=== PATIENT | male | born 1955 | race Caucasian/White ===

== ENCOUNTER → 2017-04-07 | Outpatient (CLI) | payer MEDICAID ==
[~2017-04-07] MED LIST: ASPI-496 PO; ATOR-2 PO; CARV12.543 PO; CITA10TA8 PO; CLOP75TA52 PO; IBUP200T48 PO; LORA0.5T PO; MIRT30TA4 PO; NITR0.4T SL; TICA90TA PO
== END | disposition home or self-care (01) ==
LOC: CFH 08:05
PROVIDERS: ATTEND Internal Medicine Cardiovascular Disease
DX: I25.10 Atherosclerotic heart disease of native coronary artery without angina pectoris (principal); I10 Essential (primary) hypertension; Z95.5 Presence of coronary angioplasty implant and graft
CPT/HCPCS: 78452; 93017; A9502

== ENCOUNTER → 2018-02-01 | Outpatient (CLI) | payer MEDICARE, MEDICAID ==
[~2018-02-01] MED LIST changes: -IBUP200T48 PO; +IBUP200T49 PO
== END | disposition home or self-care (01) ==
LOC: CVU 15:11
PROVIDERS: ATTEND Internal Medicine Cardiovascular Disease
DX: I65.23 Occlusion and stenosis of bilateral carotid arteries (principal); I10 Essential (primary) hypertension; E11.9 Type 2 diabetes mellitus without complications; E78.2 Mixed hyperlipidemia; Z82.3 Family history of stroke
CPT/HCPCS: 93880

== ENCOUNTER → 2018-05-13 | Outpatient (CLI) | payer MEDICARE, MEDICAID | END | disposition home or self-care (01) | LOC: RAD 13:56 | PROVIDERS: ATTEND Nurse Practitioner Family | DX: R31.9 Hematuria, unspecified (principal); R10.9 Unspecified abdominal pain | CPT/HCPCS: 74176 ==

== ENCOUNTER 2018-09-04 12:15 | Emergency (ER) | payer MEDICARE, MEDICAID ==
[~2018-09-04] VITALS: Ht 177.8 cm; Wt 92.6 kg
[2018-09-04 12:22] VITALS: BP 103/76
[2018-09-04 13:00] LABS: BASOPHILS # (AUTO) 0.02 x10^3/uL (0-0.1); BASOPHILS % (AUTO) 0 % (0-1); EOSINOPHILS # (AUTO) 0.05 x10^3/uL (0-0.4); EOSINOPHILS % (AUTO) 1 % (1-7); LYMPHOCYTES # (AUTO) 1.46 x10^3/uL (1-3.4); LYMPHOCYTES % (AUTO) 22 % (22-44); MD NO; MEAN CORPUSCULAR HEMOGLOBIN 35.4 pg (27.5-34.5); MEAN CORPUSCULAR HGB CONC 34.3 g/dL (33.2-36.2); MEAN CORPUSCULAR VOLUME 103.4 fL (81-97); MONOCYTES # (AUTO) 0.58 x10^3/uL (0.2-0.8); MONOCYTES % (AUTO) 9 % (2-9); NEUTROPHILS # (AUTO) 4.62 x10^3/uL (1.8-6.8); NEUTROPHILS % (AUTO) 69 % (42-75); PLATELET COUNT 142 x10^3/uL (130-400); RED BLOOD COUNT 4.94 x10^6/uL (4.38-5.82); RED CELL DISTRIBUTION WIDTH 13.6 % (9.4-14.8)
[2018-09-04 13:08] LABS: ALBUMIN 3.5 g/dL (3.4-5.0); ANION GAP 10 mmol/L (5-15); CALCIUM 9.1 mg/dL (8.5-10.1); CHLORIDE 109 mmol/L (98-107); CREATININE 0.93 mg/dL (0.7-1.3)
[2018-09-04 13:12] LABS: TROPONIN I < 0.015 ng/mL (0.000-0.045)
== END 2018-09-04 15:16 | disposition home or self-care (01) ==
LOC: ED 13:25
DX: R07.2 Precordial pain (principal); I10 Essential (primary) hypertension; I25.2 Old myocardial infarction; I51.9 Heart disease, unspecified; I25.10 Atherosclerotic heart disease of native coronary artery without angina pectoris
CPT/HCPCS: 36415; 71046; 80048; 82040; 84484; 85025; 93005; 99284

== ENCOUNTER 2018-09-05 10:22 | Inpatient (IN) | payer MEDICARE, MEDICAID ==
[~2018-09-05] VITALS: Ht 177.8 cm; Wt 92.4 kg
[2018-09-05] MEDS ORDERED: LORazepam 2 MG/ML, 1ML ONE (10:50)
[2018-09-05] MEDS ORDERED: ASPIRIN 81 MG TABLET CHEW ONE (10:50)
[2018-09-05] MEDS ORDERED: ASPIRIN 81 MG TABLET CHEW PO ONE (11:00)
[2018-09-05] MEDS ORDERED: LORazepam 1MG TABLET PO ONE (11:00)
[2018-09-05] MEDS ORDERED: SODIUM CHLORIDE FLUSH 10ML SYR IVF ONE (11:00)
--- NOTE | 2018-09-05 11:10 | NUR ---
REPORT TO GOPAL CASTILLO
[2018-09-05 11:20] LABS: BASOPHILS # (AUTO) 0.02 x10^3/uL (0-0.1); BASOPHILS % (AUTO) 0 % (0-1); EOSINOPHILS # (AUTO) 0.06 x10^3/uL (0-0.4); EOSINOPHILS % (AUTO) 1 % (1-7); LYMPHOCYTES # (AUTO) 1.66 x10^3/uL (1-3.4); LYMPHOCYTES % (AUTO) 31 % (22-44); MD NO; MEAN CORPUSCULAR HEMOGLOBIN 34.8 pg (27.5-34.5); MEAN CORPUSCULAR HGB CONC 33.3 g/dL (33.2-36.2); MEAN CORPUSCULAR VOLUME 104.3 fL (81-97); MEAN PLATELET VOLUME 10.1 fL (7.4-10.4); MONOCYTES # (AUTO) 0.69 x10^3/uL (0.2-0.8); MONOCYTES % (AUTO) 13 % (2-9); NEUTROPHILS # (AUTO) 2.97 x10^3/uL (1.8-6.8); NEUTROPHILS % (AUTO) 55 % (42-75); PLATELET COUNT 130 x10^3/uL (130-400); RED BLOOD COUNT 5.02 x10^6/uL (4.38-5.82); RED CELL DISTRIBUTION WIDTH 13.7 % (9.4-14.8)
[2018-09-05 11:25] LABS: ALBUMIN 3.4 g/dL (3.4-5.0); ANION GAP 7 mmol/L (5-15); CALCIUM 8.9 mg/dL (8.5-10.1); CHLORIDE 109 mmol/L (98-107); CREATININE 0.97 mg/dL (0.7-1.3)
[2018-09-05 11:29] LABS: TROPONIN I < 0.015 ng/mL (0.000-0.045)
[2018-09-05] MEDS ORDERED: LORazepam 2 MG/ML, 1ML IVPush ONE (11:30)
--- NOTE | 2018-09-05 12:01 | NUR ---
RESTING QUIETLY ON [employer]UR[employer]legorithmic, USING IPAD. CARDIAC & VS MONITIORING CONTINUING. PT REPORTS CP AT 1/10, INTERMITTENT PULSING. DENIES LIGHTHEADEDNESS, DIZZINESS. RESP EVEN & UNLABORED, SPEECH CLEAR, SKIN WNL. SIDE RAILS UP X2, CALL LIGHT W/IN REACH.
--- NOTE | 2018-09-05 13:09 | NUR ---
RESTING QUIETLY; AWARE OF PENDING ADMIT; MONITORING CONTINUES
--- NOTE | 2018-09-05 13:25 | NUR ---
PT REPORT TO ANNA NO FOR ROOM 510-2
--- NOTE | 2018-09-05 13:28 | NUR ---
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
[2018-09-05] MEDS ORDERED: ONDANSETRON 2MG/ML, 2ML IVPush PRN (14:00)
[2018-09-05] MEDS ORDERED: LABETALOL 20 MG/4 ML IVPush PRN (14:00)
[2018-09-05] MEDS ORDERED: NITROGLYCERIN 0.4 MG BOTTLE (25 TABS) SL PRN ×2 (14:00)
[2018-09-05] MEDS ORDERED: ACETAMINOPHEN 325 MG TABLET PO PRN (14:00)
[2018-09-05] MEDS ORDERED: morphine SULFATE 10 MG/ML, 1ML IVPush PRN (14:00)
[2018-09-05 14:19] VITALS: BP 137/87
[2018-09-05] MEDS ORDERED: HEPARIN 25,000 UNITS/500ML PMX 500 ML IV PRN (14:30)
[2018-09-05] MEDS ORDERED: HEPARIN 5,000 UNITS/ML, 1ML IV ONE (14:30)
[2018-09-05] MEDS ORDERED: HEPARIN 5,000 UNITS/ML, 1ML IV PRN (14:30)
[2018-09-05] MEDS: SODIUM CHLORIDE 0.9% 1,000 ML IV SCH (15:09)
[2018-09-05 15:24] LABS: INTERNATIONAL NORMALIZED RATIO 1.01 (0.93-1.1); PROTHROMBIN TIME 10.7 Seconds (9.6-11.5)
[2018-09-05 15:31] LABS: TROPONIN I < 0.015 ng/mL (0.000-0.045)
[2018-09-05] MEDS ORDERED: TRAZODONE 50MG TABLET PO PRN (17:30)
[2018-09-05 20:21] VITALS: BP 108/72
[2018-09-05] MEDS: CARVEDILOL 12.5 MG TABLET PO SCH (21:00)
[2018-09-05] MEDS ORDERED: ATORVASTATIN 80 MG TABLET PO SCH (21:00)
[2018-09-05 21:05] LABS: TROPONIN I < 0.015 ng/mL (0.000-0.045)
[2018-09-06] MEDS: SODIUM CHLORIDE 0.9% 1,000 ML IV SCH ×2 (00:44→11:00)
[2018-09-06 02:12] VITALS: BP 142/93
[2018-09-06] MEDS ORDERED: ASPIRIN 81 MG TABLET EC PO SCH (06:00)
[2018-09-06 06:17] LABS: CALCIUM 8.4 mg/dL (8.5-10.1); CHLORIDE 112 mmol/L (98-107)
[2018-09-06 06:28] LABS: BASOPHILS # (AUTO) 0.04 x10^3/uL (0-0.1); BASOPHILS % (AUTO) 1 % (0-1); EOSINOPHILS # (AUTO) 0.09 x10^3/uL (0-0.4); EOSINOPHILS % (AUTO) 1 % (1-7); LYMPHOCYTES # (AUTO) 1.69 x10^3/uL (1-3.4); LYMPHOCYTES % (AUTO) 23 % (22-44); MD NO; MEAN CORPUSCULAR HEMOGLOBIN 35.6 pg (27.5-34.5); MEAN CORPUSCULAR HGB CONC 34.4 g/dL (33.2-36.2); MEAN CORPUSCULAR VOLUME 103.7 fL (81-97); MEAN PLATELET VOLUME 10.5 fL (7.4-10.4); MONOCYTES # (AUTO) 0.84 x10^3/uL (0.2-0.8); MONOCYTES % (AUTO) 11 % (2-9); NEUTROPHILS # (AUTO) 4.81 x10^3/uL (1.8-6.8); NEUTROPHILS % (AUTO) 64 % (42-75); PLATELET COUNT 119 x10^3/uL (130-400); RED BLOOD COUNT 4.64 x10^6/uL (4.38-5.82); RED CELL DISTRIBUTION WIDTH 13.6 % (9.4-14.8)
[2018-09-06 06:31] LABS: ALANINE AMINOTRANSFERASE 36 U/L (12-78); ALKALINE PHOSPHATASE 95 U/L (45-117); ANION GAP 6 mmol/L (5-15); CREATININE 0.86 mg/dL (0.7-1.3); THYROID STIMULATING HORMONE 0.951 mIU/L (0.358-3.740); TOTAL PROTEIN 6.3 g/dL (6.4-8.2)
[2018-09-06 07:08] VITALS: BP 146/92
[2018-09-06] MEDS ORDERED: CITALOPRAM 10 MG TABLET PO SCH (09:00)
[2018-09-06] MEDS ORDERED: CLOPIDOGREL 75 MG TABLET PO SCH (09:00)
[2018-09-06] MEDS: CARVEDILOL 12.5 MG TABLET PO SCH (09:00)
[2018-09-06] MEDS ORDERED: REGADENOSON 0.4 MG/5 ML SYRINGE ONE (09:41)
[2018-09-06 13:26] VITALS: BP 126/73
== END 2018-09-06 15:06 | disposition left against medical advice (07) | DRG 311 ==
LOC: ED 11:36 → EDIP 12:30 → 5SO 13:53
PROVIDERS: ADMIT Hospitalist; ATTEND Hospitalist
DX: I24.9 Acute ischemic heart disease, unspecified (principal); I25.10 Atherosclerotic heart disease of native coronary artery without angina pectoris; I10 Essential (primary) hypertension; E78.5 Hyperlipidemia, unspecified; D75.89 Other specified diseases of blood and blood-forming organs; E78.00 Pure hypercholesterolemia, unspecified; F17.210 Nicotine dependence, cigarettes, uncomplicated; I25.2 Old myocardial infarction; Z79.02 Long term (current) use of antithrombotics/antiplatelets; Z82.49 Family history of ischemic heart disease and other diseases of the circulatory system; Z86.79 Personal history of other diseases of the circulatory system; Z95.5 Presence of coronary angioplasty implant and graft; Z79.82 Long term (current) use of aspirin; Z90.49 Acquired absence of other specified parts of digestive tract; Z53.21 Procedure and treatment not carried out due to patient leaving prior to being seen by health care provider
CPT/HCPCS: 36415; 78452; 80048; 80053; 82040; 83735; 84443; 84484; 85025; 85520; 85610; 85730; 93005; 93017; G0378; J1644; J2785; A9502; C9898; J2060; J7030

== ENCOUNTER 2020-02-29 18:07 | Emergency (ER) | payer MEDICAID, MEDICARE ==
[~2020-02-29] VITALS: Ht 177.8 cm; Wt 94.0 kg
[~2020-02-29 18:07] MED LIST changes: -NITR0.4T SL; +NITR0.4T41 SL
--- NOTE | 2020-02-29 18:31 | NUR ---
pt brought back from triage with chief complaint of bleeding wound on left shoulder- per report mole removed by Tae HICKS at [facility]. Gauze inplace for bleeding controll.
[2020-02-29 18:39] VITALS: BP 138/103
--- NOTE | 2020-02-29 18:45 | NUR ---
REPORT TO COSME CASTILLO
--- NOTE | 2020-02-29 18:56 | NUR ---
KURT CISSE AT BEDSIDE WITH SILVER NITRATE TO ATTPEMT TO STOP BLEEDING.
[2020-02-29] MEDS ORDERED: SILVER NITRATE STICK TP ONE (20:00)
== END 2020-02-29 20:07 | disposition home or self-care (01) ==
LOC: ED 19:45
DX: M96.831 Postprocedural hemorrhage of a musculoskeletal structure following other procedure (principal); I25.10 Atherosclerotic heart disease of native coronary artery without angina pectoris; I10 Essential (primary) hypertension; I25.2 Old myocardial infarction; E78.00 Pure hypercholesterolemia, unspecified; Z85.828 Personal history of other malignant neoplasm of skin
CPT/HCPCS: 99281